=== PATIENT | female | born 1975 ===

== ENCOUNTER 2024-11-09 11:50 | Emergency (ER) | payer OTHER ==
[~2024-11-09] VITALS: Ht 165.1 cm; Wt 71.2 kg
[2024-11-09 11:59] VITALS: BP 124/82; O2SAT 94
[2024-11-09] MEDS ORDERED: ZOLOFT20 MG/1 ML PO (12:03)
[2024-11-09] MEDS ORDERED: LEVALBUTEROL HCL 1.25 MG/3 ML SOLUTION IH SCH (12:30)
[2024-11-09] MEDS ORDERED: IPRATROPIUM BROMIDE 0.5 MG/2.5 ML AMPUL.NEB IH SCH (12:30)
[2024-11-09] MEDS ORDERED: METHYLPREDNISOLONE SOD SUCC 125 MG VIAL IV ONE (12:30)
[2024-11-09] MEDS ORDERED: MAGNESIUM SULFATE IN WATER 2 GM/50 ML PIGGYBAG IV ONE (12:30)
[2024-11-09] MEDS ORDERED: BENZONATATE 200 MG CAPSULE PO ONE (12:30)
[2024-11-09] MEDS ORDERED: FAMOtidine 10 MG/ML (4ML VIAL) IV ONE (12:30)
[2024-11-09] MEDS ORDERED: CEFTRIAXONE SODIUM 1,000 MG VIAL IV ONE (12:30)
[2024-11-09] MEDS ORDERED: KETOROLAC TROMETHAMINE 60 MG VIAL IM ONE ×2 (12:30→14:13)
[2024-11-09 13:17] LABS: ABG PH 7.437 (7.35-7.45); ABG PO2 69.3 mmHg (80-100); BICARBONATE 24.0 mmol/l (23-25)
[2024-11-09 13:58] LABS: o2 21 %
[2024-11-09] MEDS ORDERED: MAGNESIUM SULFATE 50% 1,000 MG/2 ML VIAL ONE (14:12)
[2024-11-09] MEDS ORDERED: CEFTRIAXONE SODIUM 1,000 MG VIAL ONE (14:13)
[2024-11-09] MEDS ORDERED: METHYLPREDNISOLONE SOD SUCC 40 MG VIAL ONE (14:13)
[2024-11-09] MEDS ORDERED: FAMOTIDINE/PF 20 MG/2 ML VIAL ONE (14:13)
[2024-11-09 15:19] LABS: BASO % 0.5 % (0.1-1.2); EOS # 0.21 (0.04-0.54); EOS % 1.9 % (0.7-7.0); LYMPH # 3.07 (1.18-3.74); LYMPH % 27.7 % (19.3-53.1); MEAN PLATELET VOLUME 9.50 fl (9.4-12.4); MONO # 0.71 (0.24-0.82); MONO % 6.4 % (4.7-12.5); NEUT # 6.99 (1.56-6.13); NEUT % 63.1 % (34.0-71.1); RED CELL DISTRIBUTION WIDTH 12.9 % (11.6-14.4)
[2024-11-09 15:29] LABS: ALT/SGPT 37.0 U/L (12-78); AST/SGOT 52.0 U/L (15-37); BILIRUBIN TOTAL 0.45 mg/dL (0.3-1.2); BUN CREA RATIO 7.0 (7.0-25.0); CREATININE SERUM 0.76 mg/dL (0.55-1.02); GFR 81.22; GLOBULINA 3.4 G/DL (2.4-3.5); GLUCOSE FASTING 93.0 mg/dL (65-100); OSMOLALITY SERUM 278.0 MOSM/KG (275-295)
[2024-11-09 15:30] LABS: INR 0.98
[2024-11-09 15:39] LABS: COVID-19 AG NEGATIVE (NEGATIVE)
[2024-11-09] MEDS ORDERED: LEVALBUTER0.63 MG/3 IH (16:02)
[2024-11-09] MEDS ORDERED: MEDROLPACK PO (16:02)
[2024-11-09] MEDS ORDERED: PEPCID AC20 MG PO (16:02)
[2024-11-09] MEDS ORDERED: BENZONATATE200 M1 PO (16:02)
[2024-11-09] MEDS ORDERED: AZITHROMYCIN500 MG PO (16:02)
== END 2024-11-09 16:17 | disposition home or self-care (01) ==
LOC: ER 11:50
PROVIDERS: General Practice
DX: J45.901 Unspecified asthma with (acute) exacerbation (principal)